=== PATIENT | female | born 1955 | race African-American/Black ===

== ENCOUNTER 2018-09-26 17:17 | Emergency (ER) | payer MEDICAID ==
[~2018-09-26] VITALS: Ht 160 cm; Wt 80.3 kg
--- NOTE | 2018-09-26 17:33 | NUR ---
ED Nurse Note: PT WALKED IN TO ER TODAY FROM HOME. AOX4. PT C/O LEFT SIDED CHEST PAIN, 10/10 RADIATING TO LOWER BACK X 2 DAYS AGO. PT DENIES HEADACHE, NAUSEA, OR VOMITING. SKIN DRY. GAIT STEADY. BP 143/80 AT BEDSIDE WITH NORMAL SINUS RHYTHM ON AUTOMATION TECHNICIAN.
[2018-09-26 17:39] VITALS: BP 143/80
[2018-09-26] MEDS ORDERED: Ketorolac 30mg Inj IM ONE (17:45)
[2018-09-26] MEDS ORDERED: Methocarbamol 750mg tab ORAL ONE (17:45)
[2018-09-26] MEDS ORDERED: LIDODERM700 M1 TOPIC (18:44)
[2018-09-26] MEDS ORDERED: ROBAXIN-750750 MG PO (18:44)
[2018-09-26 19:43] VITALS: BP 136/76
--- NOTE | 2018-09-26 19:43 | NUR ---
ED Nurse Note: PT LAYING PEACEFULLY IN BED IN NAD. AOX4. PRESCRIPTION AND DISCHARGE PAPERWORK EXPLAINED TO PT. PT VERBALIZES UNDERSTANDING AND ALL QUESTIONS ANSWERED. PRESCRIPTION AND DISCHARGE PAPERWORK GIVEN TO PT AND ID WRISTBAND REMOVED. PT WALKED OUT OF ER WITH STEADY GAIT AND ALL BELONGINGS.
--- NOTE | 2018-09-26 19:43 | Emergency Room Report ---
History of Present Illness General Chief Complaint: Chest Pain Source: Patient Present Illness HPI 63-year-old female presents ED for evaluation. Complaining of chest wall pain and upper back pain 1 day. States she woke up with this pain. Pain is dull, 7 out of 10, radiating to the back. Worse with movement. Denies shortness of breath. States she has history of fibromyalgia and neuropathy. Denies hypertension or diabetes. Denies smoking or drug use. No other aggravating relieving factors. Denies any other associated symptoms Allergies: Coded Allergies: ACETAMINOPHEN (Verified Allergy, Unknown, 09/26/18) ASPIRIN (Verified Allergy, Unknown, 09/26/18) HYDROCODONE (Verified Allergy, Unknown, 09/26/18) Patient History Past Medical History: other - fibromyalgia, neuropathy Past Surgical History: none Pertinent Family History: none Social History: Denies: smoking, alcohol use, drug use Now: No Immunizations: UTD Reviewed Nursing Documentation: PMH: Agreed; PSxH: Agreed Nursing Documentation-PMH Past Medical History: No History, Except For Review of Systems All Other Systems: negative except mentioned in HPI Physical Exam Vital Signs Date Time Temp Pulse Resp B/P (MAP) Pulse Ox O2 Delivery O2 Flow Rate FiO2 09/26/18 17:23 98.6 77 18 135/82 98 Room Air Sp02 EP Interpretation: reviewed, normal General Appearance: no apparent distress, alert, GCS 15, non-toxic Head: normocephalic, atraumatic Eyes: bilateral eye normal inspection, bilateral eye PERRL ENT: hearing grossly normal, normal pharynx, no angioedema, normal voice Neck: full range of motion, supple/symm/no masses Respiratory: lungs clear, normal breath sounds, speaking full sentences, other - reproducible L anterior chest wall pain Cardiovascular #1: regular rate, rhythm, no edema Cardiovascular #2: 2+ carotid (R), 2+ carotid (L), 2+ radial (R), 2+ radial (L) , 2+ dorsalis pedis (R), 2+ dorsalis pedis (L) Gastrointestinal: normal bowel sounds, non tender, soft, non-distended, no guarding, no rebound Rectal: deferred Genitourinary: normal inspection, no CVA tenderness, no vertebral tenderness Musculoskeletal: gait/station normal, normal range of motion, tender - reproducible L upper back pain medial to shoulder blade. Neurologic: alert, oriented x3, responsive, motor strength/tone normal, sensory intact, speech normal Psychiatric: judgement/insight normal, memory normal, mood/affect normal, no suicidal/homicidal ideation Reflexes: 3+ bicep (R), 3+ bicep (L), 3+ tricep (R), 3+ tricep (L), 3+ knee (R) , 3+ knee (L) Skin: normal color, no rash, warm/dry, well hydrated Lymphatic: no adenopathy Medical Decision Making Diagnostic Impression: Primary Impression: Muscle strain ER Course Hospital Course 63-year-old female presents ED complaining of reproducible chest wall pain. L upper back pain Differential diagnoses include: Rib fracture, FL/unstable angina, contusion, muscle strain Clinical course Patient placed on stretcher. After initial history, physical exam reveals a middle-aged female in no acute distress. There is some reproducible left sided chest wall pain. Also reproducible pain to the left upper back just medial shoulder blade. Some pain as well to the left shoulder but there is full range of motion. Lungs clear. No crepitus or bruising. Remainder of exam unremarkable. EKGnormal sinus rhythm no acute ischemic changes interpreted by me I ordered Toradol, Robaxin, Lidoderm patch. Discussed findings with patient. clinical findings consistent with muscle strain. Reassurance given. Patient has no cardiac risk factors. Vital stable. Normal EKG. I do not believe further workup is required at this time. Pain improved after medications administered. Safe for discharge and close outpatient follow-up. States she has PMD I. I feel this is a highly complex case requiring extensive working including EKG/Rhythm strip, Xray/CT/US, Blood/urine lab work, repeat exams while in ED, and administration of strong opiates/narcotics for pain control, admission to hospital or close patient follow up. Diagnosis - muscle strain Stable and discharged to home with prescription for robaxin, lidoderm. Instructed to followup with PMD. Return to ED if symptoms recur or worsen EKG Diagnostic Results Rate: normal Rhythm: NSR ST Segments: no acute changes ASA given to the pt in ED: No Rhythm Strip Diag. Results EP Interpretation: yes Rhythm: NSR, no PVC's, no ectopy Last Vital Signs Date Time Temp Pulse Resp B/P (MAP) Pulse Ox O2 Delivery O2 Flow Rate FiO2 09/26/18 17:39 98.4 77 22 143/80 99 Room Air Status: improved Disposition: HOME, SELF-CARE Condition: Stable Scripts Lidocaine (Lidoderm) 1 Each Adh..patch 1 PATCH TOPIC DAILY, #7 PATCH 0 Refills Patch(es) may remain in place for up to 12 hours in any 24-hour period. Prov: Star Deng MD 09/26/18 Methocarbamol* (ROBAXIN-750*) 750 Mg Tablet 750 MG PO TID, #21 TAB 0 Refills Prov: Star Deng MD 09/26/18 Referrals: [facility]ERR[facility] (PCP) Patient Instructions: Chest Wall Pain, [id number] Star Deng MD Sep 26, 2018 19:43
--- NOTE | 2018-09-27 12:26 | Cardiology Report ---
APPROVED REPORT EKG Measurement Heart [id number] Normal sinus rhythm Possible Left atrial enlargement Borderline ECG
== END 2018-09-26 19:43 | disposition home or self-care (01) ==
LOC: EMR 18:50
DX: R07.9 Chest pain, unspecified (principal); M54.6 Pain in thoracic spine; T14.8XXA Other injury of unspecified body region, initial encounter; X58.XXXA Exposure to other specified factors, initial encounter; Y92.9 Unspecified place or not applicable; M79.7 Fibromyalgia; Z88.6 Allergy status to analgesic agent; G62.9 Polyneuropathy, unspecified
CPT/HCPCS: 93005; 96372; 99283; J1885